=== PATIENT | male | born 1985 | race Caucasian/White ===

== ENCOUNTER 2024-03-03 16:53 | Emergency (ER) | payer MEDICAID ==
[~2024-03-03] VITALS: Ht 175.3 cm; Wt 130.1 kg
[2024-03-03 17:14] VITALS: O2SAT 97
[2024-03-03] MEDS ORDERED: AMOX-494 MT (19:13)
[2024-03-03] MEDS: IBUPROFEN 600MG TABLET PO ONE (19:21)
[2024-03-03] MEDS: ACETAMINOPHEN 325MG TABLET PO ONE (19:22)
[2024-03-03 19:23] VITALS: BP 132/79; PULSE 91; RESP 16; TEMP 37.22520; O2SAT 99
[2024-03-09] MEDS ORDERED: LEVO750T68 MT (09:02)
== END 2024-03-03 19:25 | disposition home or self-care (01) ==
LOC: ER 16:53
DX: J18.9 Pneumonia, unspecified organism (principal)
CPT/HCPCS: 71045; 93005; 99283

== ENCOUNTER 2024-10-19 08:35 | Emergency (ER) | payer MEDICAID ==
[~2024-10-19] VITALS: Ht 170.2 cm; Wt 123.0 kg
[~2024-10-19 08:35] MED LIST: LEVO750T68 MT
[2024-10-19 08:39] VITALS: O2SAT 99
[2024-10-19 10:09] VITALS: BP 120/80; PULSE 79; RESP 16; TEMP 37.1; O2SAT 100
[2024-10-19 10:37] LABS: INFLUENZA TYPE A Presumptive Negative (Pres. Neg.); RESPIRATORY SYNCYTIAL VIRUS Not Detected (Not Detectd)
[2024-10-19 10:38] LABS: INFLUENZA TYPE B Presumptive Negative (Pres. Neg.)
== END 2024-10-19 10:16 | disposition home or self-care (01) ==
LOC: ER 08:35
DX: R50.9 Fever, unspecified (principal); R05.9 Cough, unspecified; I10 Essential (primary) hypertension
CPT/HCPCS: 71045; 87420; 87804; 99284